=== PATIENT | female | born 1970 | race Caucasian/White ===

== ENCOUNTER → 2017-11-24 | Outpatient (CLI) | payer OTHER ==
[~2017-11-24] MED LIST: ATEN50; BIRTH CONTROL PILLS; BUME1; DIPH50 PO; HYDACE5325 PO; PARO10; PHENA200 PO; Percocet 5-3251 EACH PO; RANI150 PO; RXPHEN200 PO; TRAM50 PO
== END ==
LOC: LAB 12:58 → LAB SHORT 12:58
DX: N39.0 Urinary tract infection, site not specified (principal)
CPT/HCPCS: 87086

== ENCOUNTER → 2019-07-22 | Outpatient (CLI) | payer OTHER | END | disposition home or self-care (01) | LOC: LAB SHORT 17:46 → LAB EV 17:46 | DX: R30.0 Dysuria (principal); R30.9 Painful micturition, unspecified | CPT/HCPCS: 87086 ==